=== PATIENT | female | born 1945 | race Caucasian/White ===

== ENCOUNTER 2023-03-02 16:23 | Emergency (ER) | payer BC ==
[~2023-03-02] VITALS: Ht 162.6 cm; Wt 64.0 kg
[2023-03-02 17:35] VITALS: BP 111/68; TEMP 98; O2SAT 99
== END 2023-03-02 17:35 | disposition home or self-care (01) ==
LOC: ER 16:23
DX: R42 Dizziness and giddiness (principal); I10 Essential (primary) hypertension; Z88.0 Allergy status to penicillin; Z88.1 Allergy status to other antibiotic agents